=== PATIENT | female | born 1975 | race Caucasian/White ===

== ENCOUNTER 2020-04-23 19:17 | Emergency (ER) | payer BC, OTHER ==
--- NOTE | 2020-04-23 20:14 | EDM.PDOC ---
ED HPI GENERAL MEDICAL PROBLEM - General Chief Complaint: General Stated Complaint: LEFT FOOT PAIN Time Seen by Provider: 04/23/20 19:57 Source of Information: Reports: Patient, Significant Other History Limitations: Reports: No Limitations - History of Present Illness INITIAL COMMENTS - FREE TEXT/NARRATIVE: Patient presents with left foot pain after "smacking" it on a step at home at 0530 this morning. It hurt some then but worsened through the day as she walked on it. Now she can't put any weight on it due to severe pain. No numbness. No other injuries and she didn't fall when this happened. She says that she broke the 4th metacarpal in this foot about 5 years ago and didn't realize it but was told later by orthopedics that it didn't heal right so she may break it again in the future. She thinks she did today. The pain is along the same bone, just more proximal today. Treatments KETTLE SKIMMER: Reports: Other (see below) Other Treatments KETTLE SKIMMER: tramadol Left Foot Pain Score (Numeric/FACES): 10 - Related Data Allergies Allergy/AdvReac Type Severity Reaction Status Date / Time No Known Allergies Allergy Verified 04/23/20 19:31 Home Meds: Home Meds traMADol HCl [Tramadol HCl] 50 mg PO BID PRN 04/23/20 [History] Past Medical History HEENT History: Reports: Impaired Vision Other HEENT History: wears glasses Cardiovascular History: Reports: Blood Clots/VTE/DVT Gastrointestinal History: Reports: Other (See Below) Other Gastrointestinal History: ulcers INFORMATION RESOURCES DIRECTOR History: Reports: Endometriosis Musculoskeletal History: Reports: Fracture Other Musculoskeletal History: hx of. broken left foot Psychiatric History: Reports: Anxiety Endocrine/Metabolic History: Reports: Hypothyroidism Other Endocrine/Metabolic History: Glendy's. April 2020: PCP watching nodules and lymph node Oncologic (Cancer) History: Reports: Cervix - Past Surgical History HEENT Surgical History: Reports: Tonsillectomy GI Surgical History: Reports: Colonoscopy Female Surgical History: Reports: Hysterectomy Other Female Surgeries/Procedures: hysterectomy 2006 Endocrine Surgical History: Reports: Thyroid Biopsy Musculoskeletal Surgical History: Reports: Shoulder Surgery Other Musculoskeletal Surgeries/Procedures:: going to have shoulder surgery on 05/04/20 Social & Family History - Family History Family Medical History: Noncontributory - Tobacco Use Smoking Status *Q: Current Some Day Smoker Years of Tobacco use: 0 Packs/Tins Daily: 0 - Caffeine Use Caffeine Use: Reports: Coffee - Recreational Drug Use Recreational Drug Use: No ED ROS GENERAL - Review of Systems Review Of Systems: See Below Constitutional: Denies: Fever, Chills, Malaise, Weakness HEENT: Denies: Ear Pain, Throat Pain, Vision Change Respiratory: Denies: Shortness of Breath, Cough Cardiovascular: Denies: Chest Pain, Syncope GI/Abdominal: Denies: Abdominal Pain, Vomiting : Denies: Dysuria, Flank Pain Musculoskeletal: Reports: Foot Pain. Denies: Neck Pain, Shoulder Pain, Arm Pain, Back Pain, Hand Pain, Leg Pain Skin: Denies: Cyanosis, Jaundice, Mottled, Pallor, Diaphoresis Neurological: Reports: Difficulty Walking (foot pain). Denies: Confusion, Dizziness, Headache, Seizure, Syncope, Trouble Speaking Psychiatric: Denies: Agitation, Anxiety, Confusion ED EXAM, GENERAL - Physical Exam Exam: See Below Exam Limited By: No Limitations General Appearance: Alert, WD/WN, No Apparent Distress Eye Exam: Bilateral Eye: EOMI, Normal Inspection, PERRL Ears: Normal External Exam, Hearing Grossly Normal Nose: Normal Inspection, No Blood Throat/Mouth: Normal Inspection, Normal Lips, Normal Voice, No Airway Compromise Head: Atraumatic, Normocephalic Neck: Normal Inspection, Full Range of Motion Respiratory/Chest: No Respiratory Distress, Lungs Clear, Normal Breath Sounds, No Accessory Muscle Use Cardiovascular: Regular Rate, Rhythm, No Edema, No Murmur GI/Abdominal: Normal Bowel Sounds, Soft, Non-Tender, No Organomegaly, No Distention Back Exam: Normal Inspection, Full Range of Motion. No: CVA Tenderness (L), CVA Tenderness (R) Extremities: No Pedal Edema, Normal Capillary Refill, Other (Tender to palpation of 3rd and 4th left metatarsals and fibularcalcaneal ligament. Malleoli are not tender. Distal CMS is intact. No deformity, crepitus, swelling, ecchymosis, erythema evident. Skin intact.) Neurological: Alert, Oriented, Normal Cognition, No Motor/Sensory Deficits Psychiatric: Normal Affect, Normal Mood Skin Exam: Warm, Dry, Intact, Normal Color, No Rash Course - Vital Signs Last Recorded V/S: Last Vital Signs Temp 98.9 F 04/23/20 19:29 Pulse 74 07/02/20 19:29 Resp 20 04/23/20 19:29 BP 128/80 04/23/20 19:29 Pulse Ox 94 L 04/23/20 19:29 - Orders/Labs/Meds Orders: Active Orders 24 hr Category Date Time Status Foot Comp Min 3V Lt [CR] Stat Exams 04/23/20 19:30 Taken - Re-Assessments/Exams Free Text/Narrative Re-Assessment/Exam: 04/23/20 20:22 Waiting on radiology report. Patient would like something for pain and has never had problems with pain medications in the past. Will give hydrocodone 10/325 and Ibuprofen 600 mg now. 04/23/20 20:42 Report indicates no acute fracture but does note the old healed fracture of 5th metatarsal. Patient has a walking boot at home as well as crutches. We discussed findings and treatment plan. She sees an orthopedic surgeon and is planning on shoulder surgery in 11 days with him. Pt discharged to home in stable condition. 04/23/20 20:59 I pushed images to [facility] for their review when she follows up. Departure - Departure Time of Disposition: 20:40 Disposition: Home, Self-Care 01 Condition: Good Clinical Impression: Sprain of foot, left Qualifiers: Encounter type: initial encounter Qualified Code(s): S93.602A - Unspecified sprain of left foot, initial encounter Left ankle sprain Qualifiers: Encounter type: initial encounter Involved ligament of ankle: calcaneofibular ligament Qualified Code(s): S93.412A - Sprain of calcaneofibular ligament of left ankle, initial encounter - Discharge Information Instructions: Foot Sprain Referrals: Trish Veloz PA-C [Primary Care Provider] - Additional Instructions: Wear walking boot as needed until not painful to bear weight without it. Avoid putting weight on it if painful. Use your crutches as needed for support. Follow up with your PCP or orthopedic doctor if not improving in a week or sooner if worsening. Sepsis Event Note (ED) - Evaluation Sepsis Screening Result: No Definite Risk - Focused Exam Vital Signs: Vital Signs Temp Pulse Resp BP Pulse Ox 04/23/20 19:29 98.9 F 74 20 128/80 94 L - My Orders Last 24 Hours: My Active Orders 04/23/20 19:30 Foot Comp Min 3V Lt [CR] Stat - Assessment/Plan Last 24 Hours: My Active Orders 04/23/20 19:30 Foot Comp Min 3V Lt [CR] Stat
[2020-04-23] MEDS ORDERED: Acetaminophen/HYDROcodone 325-10 MG Tab PO ONE (20:21)
[2020-04-23] MEDS ORDERED: Ibuprofen 600 MG Tab PO ONE (20:22)
--- NOTE | 2020-04-23 20:25 | CR ---
[id number] RAD/RAD Foot Left 3V Min EXAM: RAD Foot Left 3V Min INDICATION: LT FOOD PAIN, LATERAL SIDE COMPARISON: July 13, 2013. DISCUSSION: Chronic healed fifth metatarsal fracture. Bipartite medial sesamoid, unchanged. No acute fracture or dislocation is identified. IMPRESSION: 1. No acute findings. Tavon Echevarria MD 04/23/202023 Thank you for allowing us to participate in the care of your patient.
[2020-04-23] MEDS ORDERED: Acetaminophen/HYDROcodone 325-5 MG Tab PO ONE (20:35)
== END 2020-04-23 20:56 | disposition home or self-care (01) ==
LOC: KA.ED 19:17
DX: S93.602A Unspecified sprain of left foot, initial encounter (principal); S93.412A Sprain of calcaneofibular ligament of left ankle, initial encounter; F17.210 Nicotine dependence, cigarettes, uncomplicated; X50.9XXA Other and unspecified overexertion or strenuous movements or postures, initial encounter; Y92.009 Unspecified place in unspecified non-institutional (private) residence as the place of occurrence of the external cause
CPT/HCPCS: 73630-LT; 99283; 99283-25; A9270-GY

== ENCOUNTER 2022-02-14 10:59 | Day surgery (SDC) | payer BC ==
[2022-02-14] MEDS ORDERED: Sodium Chloride 0.9% 10 ML Syringe FLUSH PRN (11:00)
[2022-02-14] MEDS: Lactated Ringers 1,000 ML IV SCH (11:21)
[2022-02-14] MEDS ORDERED: Propofol 200 MG/20 ML SDV ONE (11:51)
[2022-02-14] MEDS ORDERED: Midazolam 1 MG/ML 2 ML SDV ONE (11:51)
== END 2022-02-14 13:47 | disposition home or self-care (01) ==
LOC: KA.SDS 10:59
PROVIDERS: ATTEND Family Medicine
DX: Z12.11 Encounter for screening for malignant neoplasm of colon (principal); Z80.0 Family history of malignant neoplasm of digestive organs; K21.9 Gastro-esophageal reflux disease without esophagitis; E03.9 Hypothyroidism, unspecified; E66.9 Obesity, unspecified; G89.29 Other chronic pain; F41.9 Anxiety disorder, unspecified; F17.210 Nicotine dependence, cigarettes, uncomplicated; Z79.899 Other long term (current) drug therapy; Z91.038 Other insect allergy status; Z98.890 Other specified postprocedural states; Z68.30 Body mass index [BMI] 30.0-30.9, adult
CPT/HCPCS: 00812; J2250; J2704; J7120

== ENCOUNTER 2022-05-23 07:00 | Emergency (ER) | payer BC | END 2022-05-23 07:45 | disposition home or self-care (01) | LOC: KA.ED 07:00 | DX: J34.0 Abscess, furuncle and carbuncle of nose (principal); Z79.899 Other long term (current) drug therapy; Z90.710 Acquired absence of both cervix and uterus; Z72.0 Tobacco use | CPT/HCPCS: 99283 ==

== ENCOUNTER 2022-09-24 09:04 | Emergency (ER) | payer BC ==
[2022-09-24] MEDS: Sodium Chloride 0.9% 10 ML Syringe FLUSH PRN ×2 (09:10→09:19)
[2022-09-24] MEDS ORDERED: HYDROmorphone 1 MG/ML Syringe ONE ×2 (09:12→09:31)
[2022-09-24] MEDS ORDERED: Ondansetron 4 MG/2 ML SDV ONE (09:13)
[2022-09-24] MEDS ORDERED: HYDROmorphone 1 MG/ML Syringe IVPUSH ONE ×3 (09:15→09:33)
[2022-09-24] MEDS ORDERED: Ondansetron 4 MG/2 ML SDV IVPUSH ONE (09:15)
[2022-09-24] MEDS ORDERED: Sodium Chloride 0.9% 1,000 ML IV ONE (09:59)
[2022-09-24 10:10] LABS: ANION GAP 12.3 mmol/L (5-15)
[2022-09-24] MEDS ORDERED: Iopamidol 755 Mg/ML 75 ML Bottle IVPUSH ONE (10:21)
[2022-09-24] MEDS ORDERED: Sodium Chloride 0.9% 50 ML IV SCH (10:30)
== END 2022-09-24 12:10 | disposition home or self-care (01) ==
LOC: KA.ED 09:04
DX: K80.50 Calculus of bile duct without cholangitis or cholecystitis without obstruction (principal); E03.9 Hypothyroidism, unspecified; Z91.09 Other allergy status, other than to drugs and biological substances; Z79.899 Other long term (current) drug therapy
CPT/HCPCS: 36415; 74177; 80053; 81001; 82150; 83690; 84484; 85025; 93010; 96361; 96374; 96375; 96376; 99284; 99284-25; J1170; J2405; J3490; J7030; Q9967

== ENCOUNTER 2022-12-02 10:15 | Emergency (ER) | payer BC ==
[2022-12-02] MEDS ORDERED: Sodium Chloride 0.9% 10 ML Syringe FLUSH PRN (10:17)
[2022-12-02] MEDS ORDERED: Ondansetron 4 MG/2 ML SDV IVPUSH ONE (10:18)
[2022-12-02] MEDS ORDERED: Aspirin 81 MG Tab.Chew PO ONE (10:19)
[2022-12-02] MEDS: Nitroglycerin 0.4 MG Tab.SL SL PRN ×2 (10:30→10:40)
[2022-12-02 10:44] LABS: ANION GAP 16.3 mmol/L (5-15); CHLORIDE,CL 105 mmol/L (98-107); SODIUM,NA 142 mmol/L (136-145)
[2022-12-02 10:45] LABS: ESTIMATED GFR 105 mL/min (>=60)
== END 2022-12-02 14:10 | disposition home or self-care (01) ==
LOC: KA.ED 10:15
DX: R07.9 Chest pain, unspecified (principal); F41.9 Anxiety disorder, unspecified; Z91.038 Other insect allergy status; Z79.899 Other long term (current) drug therapy
CPT/HCPCS: 36415; 71045; 80053; 83880; 84484; 85025; 85379; 86140; 93005; 93010; 96374; 99284; 99284-25; A9270-GY; J2405